=== PATIENT | male | born 1980 | race Caucasian/White ===

== ENCOUNTER 2017-06-23 21:28 | Emergency (ER) | payer MEDICARE ==
[~2017-06-23] VITALS: Ht 165.1 cm; Wt 81.8 kg
[2017-06-23 21:30] VITALS: BP 169/140; PULSE 83; RESP 16; TEMP 98.4; O2SAT 99
[2017-06-23] MEDS ORDERED: KETOROLAC TROMETHAMINE 30 MG/ML (IVP) VIAL IV PUSH ONE (22:30)
[2017-06-23] MEDS ORDERED: CLINDAMYCIN 600 MG PREMIX 50 ML IV ONE (22:30)
--- NOTE | 2017-06-23 22:31 | PD ---
HPI Chief Complaint: Skin Problem Time Seen by Provider: 22:18 Travel History International Travel<30 days: No Contact w/Intl Traveler<30days: No Traveled to known affect area: No History of Present Illness HPI 36yo M with no PMH presents to the ED with c/o right arm pain today. States there was maybe 2 bumps that looked like an infected follicle or bite yesterday. Today there was pus there and redness spreading from there up his right forearm. Feeling warm and cold but no documented fever. Denies any trauma, chest pain, sob, n/v, abdominal pain, focal weakness or numbness. PFSH Past Medical History Medical History: Denies Significant Hx Past Surgical History Surgical History: No Previous Surgery Social History Alcohol Use: Yes Tobacco Use: Yes Substance Use: No Allergies-Medications (Allergen,Severity, Reaction): Coded Allergies: No Known Allergies (Unverified , 06/23/17) Reported Meds & Prescriptions Reported Meds & Active Scripts Active No Active Prescriptions or Reported Medications Review of Systems Except as stated in HPI: all other systems reviewed are Neg Physical Exam Narrative GENERAL: 36yo M in mild distress. SKIN: Focused skin assessment warm/dry. HEAD: Atraumatic. Normocephalic. EYES: Pupils equal and round. No scleral icterus. No injection or drainage. ENT: No nasal bleeding or discharge. Mucous membranes pink and moist. NECK: Trachea midline. No JVD. CARDIOVASCULAR: Regular rate and rhythm. No murmur appreciated. RESPIRATORY: No accessory muscle use. Clear to auscultation. Breath sounds equal bilaterally. GASTROINTESTINAL: Abdomen soft, non-tender, nondistended. MUSCULOSKELETAL: RUE: +2 pustules that had drained on its own and mild erythematous streaking up volar aspect of right forearm. Compartment soft. Distal pulses intact. Sensation intact. FROM right elbow. NEUROLOGICAL: Awake and alert. No obvious cranial nerve deficits. Motor grossly within normal limits. Normal speech. PSYCHIATRIC: Appropriate mood and affect; insight and judgment normal. Data Data Last Documented VS Vital Signs Date Time Temp Pulse Resp B/P (MAP) Pulse Ox O2 Delivery O2 Flow Rate FiO2 06/24/17 00:20 06/23/17 21:30 98.4 83 16 99 Room Air Orders Orders Complete Blood Count With Diff (06/23/17 22:27) Basic Metabolic Panel (Bmp) (06/23/17 22:27) Ketorolac Inj (Toradol Inj) (06/23/17 22:30) Clindamycin 600 Mg Premix (Cleocin 600 M (06/23/17 22:30) Lactic Acid Sepsis Protocol (06/23/17 22:27) Clindamycin Inj (Cleocin Inj) (06/23/17 22:45) Labs Laboratory Tests Test 06/23/17 22:35 White Blood Count 10.2 TH/MM3 Red Blood Count 5.19 MIL/MM3 Hemoglobin 17.3 GM/DL Hematocrit 48.9 % Mean Corpuscular Volume 94.3 FL Mean Corpuscular Hemoglobin 33.3 PG Mean Corpuscular Hemoglobin Concent 35.4 % Red Cell Distribution Width 12.9 % Platelet Count 141 TH/MM3 Mean Platelet Volume 10.6 FL Neutrophils (%) (Auto) 56.2 % Lymphocytes (%) (Auto) 33.1 % Monocytes (%) (Auto) 8.3 % Eosinophils (%) (Auto) 2.2 % Basophils (%) (Auto) 0.2 % Neutrophils # (Auto) 5.8 TH/MM3 Lymphocytes # (Auto) 3.4 TH/MM3 Monocytes # (Auto) 0.9 TH/MM3 Eosinophils # (Auto) 0.2 TH/MM3 Basophils # (Auto) 0.0 TH/MM3 CBC Comment DIFF FINAL Differential Comment Blood Urea Nitrogen 13 MG/DL Creatinine 0.89 MG/DL Random Glucose 84 MG/DL Calcium Level 8.8 MG/DL Sodium Level 137 MEQ/L Potassium Level 4.1 MEQ/L Chloride Level 102 MEQ/L Carbon Dioxide Level 26.3 MEQ/L Anion Gap 9 MEQ/L Estimat Glomerular Filtration Rate 97 ML/MIN Lactic Acid Level 1.2 mmol/L [facility] Medical Decision Making Medical Screen Exam Complete: Yes Emergency Medical Condition: Yes Differential Diagnosis Cellulitis vs. bug bite vs. folliculitis Narrative Course 36yo M with right forearm cellulitis. Pt is well appearing and denies any nausea or vomiting. He does have feelings of warmth at home but no documented fever. Labs reviewed, no leukocytosis. Lactic acid normal. BMP unremarkable. Pt given clindamycin IV here as well as toradol for pain with improvement of pain. Return precautions given. Diagnosis Primary Impression: Cellulitis Qualified Codes: L03.113 - Cellulitis of right upper limb Patient Instructions: General Instructions Departure Forms: Tests/Procedures Additional Instructions: Please follow up with your primary care physician in 3-7 days. Return to the ED if symptoms worsen. Med/Other Pt SpecificInfo: Prescription(s) given Scripts Acetaminophen (Tylenol) 325 Mg Tab 650 MG PO Q6H Y for PAIN SCALE 1 TO 4 for 5 Days, #40 TAB 0 Refills Prov: Lupe Roberts DO 06/24/17 Clindamycin (Clindamycin) 300 Mg Cap 300 MG PO Q6H for Infection for 7 Days, #28 CAP 0 Refills Prov: Lupe Roberts DO 06/24/17 Disposition: 01 DISCHARGE HOME Condition: Stable Lupe Roberts DO Jun 23, 2017 22:31
[2017-06-23] MEDS ORDERED: CLINDAMYCIN INJ 600 MG in SODIUM CHLORIDE 0.9% INJ 50 ML IV ONE (22:45)
[2017-06-23 22:48] LABS: AUTOMATED NEUTROPHIL # 5.8 TH/MM3 (1.8-7.7); BASOPHIL % 0.2 % (0.0-2.0); EOSINOPHIL # 0.2 TH/MM3 (0-0.4); EOSINOPHIL % 2.2 % (0.0-4.0); HEMATOCRIT 48.9 % (39.0-51.0); HEMO FLAGS DIFF FINAL; LYMPH % 33.1 % (9.0-44.0); LYMPHOCYTE # 3.4 TH/MM3 (1.0-4.8); MEAN CELL VOLUME 94.3 FL (80.0-100.0); MEAN CORPUSCULAR HEMOGLOBIN 33.3 PG (27.0-34.0); MEAN CORPUSCULAR HGB CONC 35.4 % (32.0-36.0); MONO % 8.3 % (0.0-8.0); NEUT % 56.2 % (16.0-70.0); PLATELET COUNT 141 TH/MM3 (150-450); RED BLOOD COUNT 5.19 MIL/MM3 (4.50-5.90); RED CELL DISTRIBUTION WIDTH 12.9 % (11.6-17.2); WHITE BLOOD COUNT 10.2 TH/MM3 (4.0-11.0)
[2017-06-23 23:20] LABS: BICARBONATE 26.3 MEQ/L (21.0-32.0)
[2017-06-23 23:40] LABS: POTASSIUM 4.1 MEQ/L (3.5-5.1)
[2017-06-24] MEDS ORDERED: CLIN300C5 PO (00:24)
[2017-06-24] MEDS ORDERED: TYLE325T PO (00:24)
== END 2017-06-24 00:29 | disposition home or self-care (01) ==
LOC: NEPD 21:28
DX: L03.113 Cellulitis of right upper limb (principal); Z72.0 Tobacco use
CPT/HCPCS: 80048; 83605; 85025; 96365; 96375; 99284; J1885

== ENCOUNTER 2017-11-02 00:04 | Emergency (ER) | payer MEDICAID ==
[~2017-11-02] VITALS: Ht 165.1 cm; Wt 80.0 kg
[~2017-11-02 00:04] MED LIST: CLIN300C5 PO; TYLE325T PO
[2017-11-02 00:17] VITALS: BP 156/98; PULSE 113; RESP 22; TEMP 98.1; O2SAT 100
[2017-11-02 00:45] LABS: AUTOMATED NEUTROPHIL # 6.3 TH/MM3 (1.8-7.7); BASOPHIL % 0.5 % (0.0-2.0); EOSINOPHIL # 0.2 TH/MM3 (0-0.4); EOSINOPHIL % 1.8 % (0.0-4.0); HEMATOCRIT 47.7 % (39.0-51.0); HEMOGLOBIN 16.7 GM/DL (13.0-17.0); LYMPH % 24.8 % (9.0-44.0); LYMPHOCYTE # 2.4 TH/MM3 (1.0-4.8); MEAN CELL VOLUME 93.8 FL (80.0-100.0); MEAN CORPUSCULAR HEMOGLOBIN 32.8 PG (27.0-34.0); MEAN PLATELET VOLUME 9.4 FL (7.0-11.0); MONOCYTE # 0.8 TH/MM3 (0-0.9); NEUT % 64.9 % (16.0-70.0); PLATELET COUNT 163 TH/MM3 (150-450); RED BLOOD COUNT 5.08 MIL/MM3 (4.50-5.90); RED CELL DISTRIBUTION WIDTH 13.1 % (11.6-17.2); WHITE BLOOD COUNT 9.7 TH/MM3 (4.0-11.0)
--- NOTE | 2017-11-02 01:08 | RADRPT ---
EXAM DATE/TIME: 11/02/2017 00:49 [facility] COMPARISON: No previous studies available for comparison. INDICATIONS : Chest pain. MEDICAL HISTORY : None. SURGICAL HISTORY : None. ENCOUNTER: Initial ACUITY: 1 day PAIN SCORE: 4/10 LOCATION: Bilateral chest FINDINGS: PA and lateral views of the chest demonstrate the lungs to be symmetrically aerated without evidence of mass, infiltrate or effusion. The cardiomediastinal contours are unremarkable. Osseous structure s are intact. CONCLUSION: The lungs are clear. Jorden Kingston MD on November 02, 2017 at 1:07 Board Certified Radiologist. This report was verified electronically.
[2017-11-02 01:11] LABS: BICARBONATE 25.6 MEQ/L (21.0-32.0); BLOOD UREA NITROGEN 9 MG/DL (7-18); CALCIUM 8.8 MG/DL (8.5-10.1); CHLORIDE 100 MEQ/L (98-107); CREATININE 0.85 MG/DL (0.60-1.30); GLOMERULAR FILTRATION RATE 102 ML/MIN (>89); GLUCOSE,RANDOM 109 MG/DL (74-106); SODIUM (NA) 136 MEQ/L (136-145)
[2017-11-02 01:14] LABS: TROPONIN I LESS THAN 0.02 NG/ML (0.02-0.05)
--- NOTE | 2017-11-02 08:44 | EKG ---
Date Performed: 11/02/2017 Time Performed: 00:27:39 PTAGE: 36 years EKG: SINUS TACHYCARDIA NONSPECIFIC T-WAVE ABNORMALITY ABNORMAL RHYTHM ECG NO PREVIOUS TRACING DOCTOR: Mark Cadena Interpretating Date/Time 11/02/2017 08:27:49
== END 2017-11-02 04:51 | disposition left against medical advice (07) ==
LOC: NED 00:04
DX: R07.9 Chest pain, unspecified (principal)
CPT/HCPCS: 71046; 80048; 82550; 82552; 84484; 85025; 93005